=== PATIENT | female | born 1985 | race Caucasian/White ===

== ENCOUNTER 2020-03-02 02:23 | Emergency (ER) | payer SELFPAY ==
[~2020-03-02] VITALS: Ht 165.1 cm; Wt 62.7 kg
[2020-03-02 03:46] VITALS: BP 129/86
== END 2020-03-02 03:51 | disposition home or self-care (01) ==
LOC: ER 02:23
DX: S90.822A Blister (nonthermal), left foot, initial encounter (principal); S90.821A Blister (nonthermal), right foot, initial encounter; X58.XXXA Exposure to other specified factors, initial encounter; Y93.89 Activity, other specified; Y92.89 Other specified places as the place of occurrence of the external cause
CPT/HCPCS: 99283

== ENCOUNTER 2020-03-03 13:09 | Emergency (ER) | payer MEDICAID ==
[~2020-03-03] VITALS: Ht 165.1 cm; Wt 70.0 kg
[2020-03-03] MEDS ORDERED: SODIUM CHLORIDE 0.9% 1,000 ML IV ONE (13:46)
[2020-03-03] MEDS ORDERED: LORAZEPAM 1MG TABLET PO ONE (14:00)
[2020-03-03] MEDS ORDERED: KETOROLAC 15MG/ML VIAL IV ONE (14:00)
[2020-03-03 15:09] LABS: CHLORIDE 106 mEq/L (98-107)
[2020-03-03 15:13] LABS: ETHANOL BLOOD < 10 mg/dL
[2020-03-03 15:18] LABS: BASOPHILS % 0.4 % (0.0-2.0); EOSINOPHILS % 2.4 % (0.0-5.0); HEMATOCRIT. 37.1 % (36.0-48.0); HEMOGLOBIN. 12.6 g/dL (12.0-16.0); LYMPHOCYTES % 11.7 % (20.0-50.0); MEAN CORPUSCULAR HEMOGLOBIN 30.5 pg (28.0-32.0); MEAN PLATELET VOLUME 8.6 fl (7.4-10.4); NEUTROPHILS % 79.5 % (40.0-76.0); PLATELET 386 x1000/uL (130-400); RED BLOOD CELL COUNT 4.12 mill/uL (4.2-5.4); RED CELL DISTRIBUTION WIDTH 13.6 % (11.6-14.6)
[2020-03-03 15:19] LABS: HCG SCREEN NEGATIVE
[2020-03-03 15:39] LABS: CLARITY URINE CLEAR (CLEAR); COLOR URINE YELLOW (YELLOW); KETONES URINE NEGATIVE (NEGATIVE); LEUKOCYTE ESTERASE URINE TRACE (NEGATIVE); NITRITE URINE NEGATIVE (NEGATIVE); OCCULT BLOOD URINE NEGATIVE (NEGATIVE); PROTEIN URINE NEGATIVE (NEGATIVE); SPECIFIC GRAVITY URINE 1.019 (1.005-1.030)
[2020-03-03 15:54] LABS: *BARBITURATES SCREEN URINE NEGATIVE (NEGATIVE); *BENZODIAZEPINES SCREEN URINE NEGATIVE (NEGATIVE); *COCAINE SCREEN URINE NEGATIVE (NEGATIVE); METHADONE URINE SCREEN NEGATIVE (NEGATIVE); OPIATES URINE SCREEN NEGATIVE (NEGATIVE)
[2020-03-03 15:55] LABS: CANNABINOID URINE SCREEN NEGATIVE (NEGATIVE); PHENCYCLIDINE URINE SCREEN NEGATIVE (NEGATIVE)
[2020-03-03] MEDS ORDERED: LORAZEPAM 2MG/ML CPJ IV ONE ×2 (16:00→17:45)
[2020-03-03 16:01] LABS: *AMPHETAMINES SCREEN URINE PRESUMTIVE POSITIVE (NEGATIVE)
[2020-03-03] MEDS ORDERED: NITROFURANTOIN 100MG M/M CAPSULE PO STA (16:12)
[2020-03-03] MEDS ORDERED: OLANZAPINE 10 MG/VIAL IM ONE (17:45)
[2020-03-03] MEDS ORDERED: ZIPRASIDONE MESYLATE 20MG/VIAL IM ONE (23:30)
[2020-03-04] MEDS ORDERED: LORAZEPAM 1MG TABLET PO ONE (20:30)
[2020-03-04] MEDS: OLANZAPINE 10MG TABLET PO SCH (20:56)
[2020-03-05] MEDS: OLANZAPINE 10MG TABLET PO SCH (10:12)
[2020-03-05] MEDS ORDERED: IBUPROFEN 600MG TABLET PO STA (11:21)
[2020-03-05 13:17] VITALS: BP 105/61
== END 2020-03-05 13:24 | disposition home or self-care (01) ==
LOC: ER 13:38
DX: F41.9 Anxiety disorder, unspecified (principal); F31.9 Bipolar disorder, unspecified; Z88.1 Allergy status to other antibiotic agents; I49.9 Cardiac arrhythmia, unspecified
CPT/HCPCS: 36415; 80053; 80305; 80320; 81003; 81025; 84703; 85025; 93005; 96361; 96372; 96374; 96375; 96376; 99285; J1885; J2060; J3486; J3490; J7030; G0480